=== PATIENT | male | born 1990 | race African-American/Black ===

== ENCOUNTER 2020-07-29 20:47 | Emergency (ER) | payer OTHER ==
[~2020-07-29] VITALS: Ht 175.3 cm; Wt 77.1 kg
[~2020-07-29 20:47] MED LIST: NORCO 5-325 TA1 EACH ORAL
--- NOTE | 2020-07-29 21:02 | NUR ---
ED Nurse Note: pt presents to ED with R foot pain after he dropped a large piece of wood on his foot during work 2 days ago. pt states that he was shifting a large piece of wood and it dropped and fit his foot. since then it has been painful and swollen. skin is warm dry and intact, appears to be swollen. pt can still wiggle toes Addendum: 07/29/20 at 2105 by VITOR pt denies taking anything STAFF INTERNIST OFFICE BASED ONLY arrival for px, states he has been keeping R foot elevated
--- NOTE | 2020-07-29 21:06 | NUR ---
ED Nurse Note: ERMD at pt bedside, pt declining pain medications at this time
--- NOTE | 2020-07-29 21:22 | Diagnostic Imaging Report ---
EXAM: XR Right Foot Complete, 3 or More Views CLINICAL HISTORY: PAIN TECHNIQUE: Frontal, lateral and oblique views of the right foot. COMPARISON: No previous studies. FINDINGS: Bones/joints: Acute nondisplaced transverse stress fracture at the mid to distal diaphysis of the right fourth metatarsal is noted. Remaining osseous structures are unremarkable. Anatomic alignment is normal. Soft tissues: Soft tissues are unremarkable. No radiopaque foreign body. IMPRESSION: Nondisplaced stress fracture of the mid to distal diaphysis of the right fourth metatarsal.
[2020-07-29] MEDS ORDERED: IBUPROFEN600 M1 ORAL (21:35)
[2020-07-29 21:55] VITALS: BP 135/75
--- NOTE | 2020-07-29 21:55 | NUR ---
ER DISCHARGE NOTE: Patient is cleared to be discharged per ERMD, R foot is put into cast. pt is aox4, on room air, with stable vital signs. pt was given dc and prescription instructions as well as copy of xray results and referral for [facility]. pt was able to verbalize understanding, pt id band removed without complications. pt is able to ambulate with steady gait. pt took all belongings.
--- NOTE | 2020-07-29 22:02 | Emergency Room Report ---
History of Present Illness General Chief Complaint: Lower Extremity Injury Source: Patient Present Illness Allergies: Coded Allergies: No Known Allergies (Unverified , 08/07/14) COVID-19 Screening Contact w/high risk pt: No Experienced COVID-19 symptoms?: No COVID-19 Testing performed RIVET TOSSER: No Nursing Documentation-PM Past Medical History: No Stated History Physical Exam Vital Signs Date Time Temp Pulse Resp B/P (MAP) Pulse Ox O2 Delivery O2 Flow Rate FiO2 07/29/20 20:51 98.8 64 16 135/75 (95) 99 Room Air Medical Decision Making Diagnostic Impression: Primary Impression: Metatarsal fracture Last Vital Signs Date Time Temp Pulse Resp B/P (MAP) Pulse Ox O2 Delivery O2 Flow Rate FiO2 07/29/20 20:51 98.8 64 16 135/75 (95) 99 Room Air Disposition: HOME, SELF-CARE Condition: Stable Scripts Ibuprofen* (MOTRIN*) 600 Mg Tablet 600 MG ORAL Q8H PRN for FOR PAIN, #30 TAB 0 Refills Prov: Faizan Oneil MD 07/29/20 Referrals: NOT CHOSEN [facility]/,REFERRING (PCP) [facility] 24 hour /7 days a week by Appointment Only [address] [address] Departure Forms: Return to Work Return to Work Date: Jul 31, 2020 Work Restrictions: Desk Work Only Patient Instructions: Metatarsal Fracture With [facility] Faizan Oneil MD Jul 29, 2020 22:02
== END 2020-07-29 21:55 | disposition home or self-care (01) ==
LOC: EMR 21:19
DX: S92.344A Nondisplaced fracture of fourth metatarsal bone, right foot, initial encounter for closed fracture (principal); X58.XXXA Exposure to other specified factors, initial encounter; Y92.9 Unspecified place or not applicable
CPT/HCPCS: 29515; 99283